=== PATIENT | female | born 1935 | race Caucasian/White ===

== ENCOUNTER 2025-07-08 05:52 | Emergency (ER) | payer MEDICARE ==
[2025-07-08] MEDS ORDERED: Acetaminophen 325 MG TAB ONE ×2 (07:59→08:03)
== END 2025-07-08 11:53 ==
LOC: NAV ERS 05:52
DX: R51.9 Headache, unspecified (principal); I10 Essential (primary) hypertension; I25.10 Atherosclerotic heart disease of native coronary artery without angina pectoris; E78.5 Hyperlipidemia, unspecified; E56.9 Vitamin deficiency, unspecified; Z79.899 Other long term (current) drug therapy; W19.XXXA Unspecified fall, initial encounter
CPT/HCPCS: 70450; 72125